=== PATIENT | male | born 1965 | race Caucasian/White ===

== ENCOUNTER 2017-11-01 13:34 | Emergency (ER) | payer OTHER, MEDICAID ==
[~2017-11-01] VITALS: Ht 182.9 cm; Wt 95.2 kg
[~2017-11-01 13:34] MED LIST: ALD25 PO; ALDACTONE25 MG PO; ATIVAN1 MG PO; FOLIC ACID0.4 MG PO; GLU500 PO; KLOR-CON20 MEQ PO; L20 PO; LIBRIUM10 MG; LOSARTAN POTASS25 M1; METOPROLOL SUCC25 M1 PO; METOPROLOL25 MG PO; THI100 PO; ZES20 PO
[2017-11-01 13:59] VITALS: Ht 182.9 cm; Wt 95.2 kg
== END 2017-11-01 15:58 | disposition left against medical advice (07) ==
LOC: ED 13:34
DX: Z53.21 Procedure and treatment not carried out due to patient leaving prior to being seen by health care provider (principal)

== ENCOUNTER 2019-02-24 21:37 | Emergency (ER) | payer OTHER | END 2019-02-24 22:23 | disposition other institution (70) | LOC: ED 21:37 | DX: Z02.89 Encounter for other administrative examinations (principal) ==

== ENCOUNTER 2019-02-24 21:37 | Emergency (ER) | payer OTHER ==
[~2019-02-24] VITALS: Ht 182.9 cm; Wt 90.7 kg
[2019-02-24 21:50] VITALS: BP 134/87; Ht 182.9 cm; Wt 90.7 kg
== END 2019-02-24 22:23 | disposition other institution (70) ==
LOC: ED 21:37
DX: I11.0 Hypertensive heart disease with heart failure (principal); S00.211A Abrasion of right eyelid and periocular area, initial encounter; I50.9 Heart failure, unspecified; E11.9 Type 2 diabetes mellitus without complications; F41.9 Anxiety disorder, unspecified; Z98.890 Other specified postprocedural states; X58.XXXA Exposure to other specified factors, initial encounter; Y93.89 Activity, other specified; Y92.89 Other specified places as the place of occurrence of the external cause; Y99.8 Other external cause status
CPT/HCPCS: 82962